=== PATIENT | female | born 1995 | race Two or more races ===

== ENCOUNTER 2019-05-14 20:21 | Emergency (ER) | payer MEDICAID, OTHER ==
[~2019-05-14] VITALS: Ht 162.6 cm; Wt 75.7 kg
[2019-05-14 20:37] VITALS: BP 133/70
== END 2019-05-14 21:12 | disposition left against medical advice (07) ==
LOC: ER 20:22
DX: O20.8 Other hemorrhage in early pregnancy (principal); Z3A.00 Weeks of gestation of pregnancy not specified; Z53.21 Procedure and treatment not carried out due to patient leaving prior to being seen by health care provider

== ENCOUNTER 2024-01-09 00:25 | Emergency (ER) | payer MEDICAID ==
[~2024-01-09] VITALS: Ht 162.6 cm; Wt 83.9 kg
[2024-01-09 01:05] LABS: Basophils # (auto) 0 10 ^3/uL (0-0.2); Basophils % (auto) 0.5 % (0.0-2.0); Eosinophils # (auto) 0.1 10 ^3/uL (0-0.8); Eosinophils % (auto) 0.9 % (0.0-7.0); Hematocrit 40.3 % (36.0-46.0); Hemoglobin 13.7 g/dL (12.2-16.2); Lymphocytes # (auto) 2.5 10 ^3/uL (0.4-5.4); Lymphocytes % (auto) 27.8 % (10.0-50.0); Mean Corpuscular Hemoglobin 30.1 pg (28.0-32.0); Mean Corpuscular Volume 88.7 fL (80.0-100.0); Monocytes # (auto) 0.6 10 ^3/uL (0-1.3); Monocytes % (auto) 6.7 % (0.0-12.0); Neutrophils # (auto) 5.8 10 ^3/uL (1.6-8.6); Neutrophils % (auto) 64.1 % (37.0-80.0); Red Blood Cells 4.54 10^6/uL (4.0-5.20); Red Cell Distribution Width 12.9 % (11.8-14.3)
[2024-01-09] MEDS: HYDROcodone-ACET 5/325MG TAB PO ONE (01:05)
[2024-01-09 01:13] LABS: Chloride 106 mmol/L (98-107); Potassium 3.7 mmol/L (3.5-5.1); Sodium 139 mmol/L (136-145)
[2024-01-09 01:14] LABS: Anion Gap 5 (5-15); Calcium 9.9 mg/dL (8.7-10.4); Carbon Dioxide 28 mmol/L (20-30)
[2024-01-09 01:19] LABS: BUN/Creatinine Ratio 12.2 (10.0-20.0); Blood Urea Nitrogen 10 mg/dL (9-23); Glucose 108 mg/dL (74-106); Lipase 34 U/L (12-53)
[2024-01-09 01:45] LABS: Urine Bacteria None Seen /hpf (None Seen)
[2024-01-09 01:59] LABS: Urine Blood 3+ /uL (Negative); Urine Budding Yeast OCCASIONAL /hpf (None Seen); Urine Clarity Clear (Clear); Urine Color Yellow (Yellow); Urine Mucus FEW (None Seen); Urine Protein, UAD TRACE (Negative); Urine Specific Gravity 1.029 (1.001-1.035); Urine Urobilinogen 2 mg/dL (Negative); Urine WBC 7 /hpf (0 - 5); Urine pH 5.5 (5.0-9.0)
[2024-01-09] MEDS ORDERED: ZOFR4T PO (02:19)
[2024-01-09] MEDS ORDERED: METR-344 PO (02:19)
[2024-01-09] MEDS ORDERED: ACET500T58 PO (02:19)
[2024-01-09] MEDS: metroNIDAZOLE 500 MG TAB PO ONE (02:21)
[2024-01-09 02:25] VITALS: BP 142/87; TEMP 97.7
[2024-01-09 02:33] VITALS: PULSE 71; RESP 18; O2SAT 100
== END 2024-01-09 02:37 | disposition home or self-care (01) ==
LOC: ER 00:25
DX: A09 Infectious gastroenteritis and colitis, unspecified (principal); E66.9 Obesity, unspecified; Z68.31 Body mass index [BMI] 31.0-31.9, adult; Z88.8 Allergy status to other drugs, medicaments and biological substances
CPT/HCPCS: 36415; 74176; 80048; 81001; 81025; 83690; 85025

== ENCOUNTER 2024-07-22 20:06 | Emergency (ER) | payer MEDICAID ==
[~2024-07-22] VITALS: Ht 162.6 cm; Wt 86.1 kg
[~2024-07-22 20:06] MED LIST: ACET500T58 PO; METR-344 PO; ZOFR4T PO
[2024-07-22 20:20] VITALS: BP 143/98; PULSE 113; RESP 18; TEMP 98.3; O2SAT 96
[2024-07-22] MEDS: ONDANSETRON ODT 4 MG TAB PO ONE (21:25)
[2024-07-22] MEDS: KETOROLAC TROMETH 60MG/2ML VIAL IM ONE (21:25)
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
[2024-07-22] MEDS ORDERED: IBUP-1455 PO (22:03)
[2024-07-22] MEDS ORDERED: ZOFR4T PO (22:03)
[2024-07-22] MEDS ORDERED: TIZA-142 PO (22:03)
== END 2024-07-22 22:17 | disposition home or self-care (01) ==
LOC: ER 20:06
DX: S13.4XXA Sprain of ligaments of cervical spine, initial encounter (principal); R11.0 Nausea; M25.511 Pain in right shoulder; M79.601 Pain in right arm; Z88.6 Allergy status to analgesic agent; V89.2XXA Person injured in unspecified motor-vehicle accident, traffic, initial encounter; Y93.89 Activity, other specified; Y92.410 Unspecified street and highway as the place of occurrence of the external cause; Y99.8 Other external cause status
CPT/HCPCS: 72125; 96372; 99285; J1885; Q0162